=== PATIENT | male | born 1955 | race Caucasian/White ===

== ENCOUNTER 2021-01-04 08:59 | Outpatient (CLI) | payer MEDICARE, OTHER | END 2021-01-04 09:00 | disposition home or self-care (01) | LOC: DI 08:59 | PROVIDERS: ATTEND Physician Assistant | DX: I49.3 Ventricular premature depolarization (principal); I51.7 Cardiomegaly; R93.1 Abnormal findings on diagnostic imaging of heart and coronary circulation | CPT/HCPCS: 93306 ==